=== PATIENT | male | born 1995 | race Caucasian/White ===

== ENCOUNTER 2021-08-09 16:54 | Emergency (ER) | payer OTHER ==
[~2021-08-09] VITALS: Ht 193 cm; Wt 112.4 kg
[2021-08-09] MEDS ORDERED: ZYRTEC10 MG PO (17:09)
[2021-08-09] MEDS ORDERED: NAPROXEN500 MG PO (17:10)
== END 2021-08-09 20:05 | disposition home or self-care (01) ==
LOC: ED 16:54
DX: S92.411A Displaced fracture of proximal phalanx of right great toe, initial encounter for closed fracture (principal); Z79.899 Other long term (current) drug therapy; W22.8XXA Striking against or struck by other objects, initial encounter
CPT/HCPCS: 73660; 99283-25

== ENCOUNTER 2022-12-08 14:26 | Emergency (ER) | payer OTHER ==
[~2022-12-08] VITALS: Ht 193 cm; Wt 106.5 kg
[~2022-12-08 14:26] MED LIST: NAPROXEN500 MG PO; ZYRTEC10 MG PO
[2022-12-08 15:23] LABS: BASOPHILS 0.4 % (0-2); EOSINOPHILS 4.9 % (0-6); HEMATOCRIT 40.7 % (35.0-50.0); HEMOGLOBIN 14.3 g/dL (12.0-18.0); LYMPHOCYTES 29.3 % (24-44); MCHC 35.1 g/dl (30-36); MCV 91.2 fl (81-99); MONOCYTES 7.4 % (0-12); PLATELET COUNT 297 K/uL (140-440); RBC 4.47 M/ul (4.3-5.7); RDW 12.5 (10.5-15.0)
[2022-12-08 15:30] LABS: INR 0.94 (0.80-1.30); PROTIME 12.2 Sec (11.2-14.2)
[2022-12-08 15:36] LABS: ALBUMIN 4.1 g/dL (3.4-5.0); ALBUMIN/GLOBULIN RATIO 1.11 (1.1-2.4); ANION GAP 11.6 (7-21); BILIRUBIN, TOTAL 0.4 ng/dL (0.2-1.0); BUN/CREATININE RATIO 11.22 (6.0-28.6); CALCIUM 9.1 mg/dL (8.5-10.1); CREATININE, SERUM 0.98 mg/dL (0.70-1.30); POTASSIUM 3.6 mmol/L (3.5-5.1); PROTEIN, TOTAL 7.8 g/dL (6.4-8.2)
[2022-12-08 21:19] VITALS: BP 122/74
== END 2022-12-08 21:20 | disposition home or self-care (01) ==
LOC: ED 14:26
PROVIDERS: Emergency Medicine
DX: K62.5 Hemorrhage of anus and rectum (principal); Z79.899 Other long term (current) drug therapy
CPT/HCPCS: 36415; 74177; 80053; 85025; 85610; 99284-25; Q9967